=== PATIENT | female | born 2000 | race Caucasian/White ===

== ENCOUNTER 2023-03-20 06:46 | Emergency (ER) | payer OTHER ==
[~2023-03-20] VITALS: Ht 167.6 cm; Wt 65.8 kg
[2023-03-20] MEDS ORDERED: PRENATAL CAPLE1 EAC1 (06:55)
== END 2023-03-20 11:47 | disposition home or self-care (01) ==
LOC: ER 06:46
DX: O20.9 Hemorrhage in early pregnancy, unspecified (principal); Z3A.01 Less than 8 weeks gestation of pregnancy